=== PATIENT | female | born 1980 | race Caucasian/White ===

== ENCOUNTER 2018-04-01 08:25 | Emergency (ER) | payer MEDICAID ==
[2018-04-01] MEDS: DIPHTH/TET/ACEL PERTUSS (ADULT) 0.5 ML VIAL IM* (08:55)
== END 2018-04-01 10:13 | disposition home or self-care (01) ==
LOC: FTE 08:25
DX: S61.211A Laceration without foreign body of left index finger without damage to nail, initial encounter (principal); Y04.2XXA Assault by strike against or bumped into by another person, initial encounter; Z23 Encounter for immunization
CPT/HCPCS: 29130; 73130-LT; 90471; 90715; 99283-25

== ENCOUNTER 2018-11-14 15:33 | Emergency (ER) | payer MEDICAID | END 2018-11-14 17:17 | disposition home or self-care (01) | LOC: FTE 15:33 | DX: J06.9 Acute upper respiratory infection, unspecified (principal); H60.93 Unspecified otitis externa, bilateral | CPT/HCPCS: 99283; Z7502 ==

== ENCOUNTER 2019-01-09 12:06 | Emergency (ER) | payer MEDICAID ==
[2019-01-09] MEDS: BELLADONNA/PHENOBARBITAL TAB PO (13:52)
[2019-01-09] MEDS: LIDOCAINE/MYLANTA 40 ML BTL PO (13:52)
[2019-01-09] MEDS: DIPHENHYDRAMINE 50 MG CAP PO (13:52)
[2019-01-09 14:01] LABS: ADD MAN DIFF? NO
[2019-01-09 14:07] LABS: WHITE BLOOD COUNT 8.5 10^3/ul (4.8-10.8)
[2019-01-09 14:07] LABS: BASOPHIL # 0.1 10^3/ul (0.0-0.1); BASOPHILS % 0.6 % (0.0-2.0); EOSINOPHILS # 0.5 10^3/ul (0.0-0.5); EOSINOPHILS % 6.4 % (0.0-7.0); HEMATOCRIT 41.2 % (37.0-47.0); HEMOGLOBIN 13.7 g/dl (12.0-16.0); LYMPHOCYTES # 2.4 10^3/ul (0.8-2.9); LYMPHOCYTES % 28.2 % (15.0-51.0); MEAN CORPUSCULAR HEMOGLOBIN 30.5 pg (29.0-33.0); MEAN CORPUSCULAR HGB CONC 33.3 g/dl (32.0-37.0); MEAN CORPUSCULAR VOLUME 91.8 fl (82.0-101.0); MEAN PLATELET VOLUME 8.8 fl (7.4-10.4); MONOCYTE # 0.6 10^3/ul (0.3-0.9); MONOCYTES % 7.3 % (0.0-11.0); NEUTROPHIL # 4.9 10^3/ul (1.6-7.5); NEUTROPHILS % 57.1 % (39.0-77.0); PLATELET COUNT 414 10^3/UL (140-415); RED BLOOD COUNT 4.49 10^6/ul (4.20-5.40); RED CELL DISTRIBUTION WIDTH 12.7 % (11.5-14.5)
[2019-01-09 14:23] LABS: ALANINE AMINOTRANSFERASE 25 IU/L (13-69); ALBUMIN 4.2 g/dl (3.3-4.9); ALBUMIN/GLOBULIN RATIO 1.16; ALKALINE PHOSPHATASE 66 IU/L (42-121); AMYLASE 87 U/L (11-123); ANION GAP 10 (5-13); ASPARTATE AMINO TRANSFERASE 22 IU/L (15-46); BILIRUBIN,INDIRECT 0.3 mg/dl (0-1.1); BILIRUBIN,TOTAL 0.3 mg/dl (0.2-1.3); BLOOD UREA NITROGEN 11 mg/dl (7-20); CALCIUM 9.3 mg/dl (8.4-10.2); CARBON DIOXIDE 25 mmol/L (21-31); CHLORIDE 105 mmol/L (97-110); CREATININE 0.56 mg/dl (0.44-1.00); Estimated GFR > 60 mL/min (>60); GLUCOSE 98 mg/dl (70-220); LIPASE 196 U/L (23-300); POTASSIUM 3.8 mmol/L (3.5-5.1); SODIUM 140 mmol/L (135-144); TOTAL PROTEIN 7.8 g/dl (6.1-8.1)
== END 2019-01-09 15:34 | disposition home or self-care (01) ==
LOC: E/R 12:06
DX: T78.1XXA Other adverse food reactions, not elsewhere classified, initial encounter (principal); L29.9 Pruritus, unspecified
CPT/HCPCS: 80053; 82150; 83690; 85025; 99283